=== PATIENT | male | born 1965 | race African-American/Black ===

== ENCOUNTER 2019-09-04 09:13 | Day surgery (SDC) | payer OTHER ==
[2019-09-04] VITALS (11 sets, daily range): BP systolic 120–141; BP diastolic 81–94; PULSE 53–68; TEMP 98
[~2019-09-04] VITALS: Ht 172.7 cm; Wt 115.3 kg
[~2019-09-04 09:13] MED LIST: ASPIRIN E.C. 8181 MG PO; CALCIUM600 M2 PO; DESYREL 50MG50 MG PO; HCTZ 25MG TAB25 MG PO; K-TAB20 PO; MASON NATURAL2000 IU PO; MULTIPLE VITAMI1 CAP PO; OMEGA-3 FISH1200 MG PO; PRILOSEC 20MG20 MG PO; THE MEDICINE S200 M2 PO; ZESTRIL 20MG TA20 MG PO; ZOLOFT 50MG50 MG PO
[2019-09-04] MEDS ORDERED: LIPITOR 40MG TA40 MG PO (09:43)
[2019-09-04] MEDS ORDERED: NORVASC 5MG5 MG/TAB PO (09:43)
[2019-09-04] MEDS ORDERED: FLEXERIL 1010 MG/TAB PO (09:45)
[2019-09-04] MEDS ORDERED: IMURAN 50MG TAB50 MG PO (09:47)
[2019-09-04] MEDS ORDERED: MELATONIN3 M1 PO (09:50)
[2019-09-04] MEDS ORDERED: NITROSTAT0.4 MG/TAB SL (09:51)
[2019-09-04] MEDS ORDERED: NITRO-DUR0.2 MG/PAT TD (09:51)
[2019-09-04] MEDS ORDERED: OMEGA-3 1000 MG1 CAP PO (09:52)
[2019-09-04] MEDS ORDERED: MINIPRESS2 MG PO (09:56)
[2019-09-04] MEDS ORDERED: AMBIEN 5MG TABLE5 MG PO (09:59)
[2019-09-04 10:47] LABS: HEMATOCRIT 42.5 % (42.0-52.0); HEMOGLOBIN 14.6 g/dl (13.5-18.0); MEAN CELL VOLUME 89 fl (80.0-100.0); MEAN CORPUSCULAR HEMOGLOBIN 31 pg (27.0-31.0); MEAN CORPUSCULAR HGB CONC 34 g/dl (33.0-37.0); MEAN PLATELET VOLUME 10.1 fl (7.4-10.4); PLATELET COUNT 234 K/mm3 (130-400); RED BLOOD COUNT 4.79 M/mm3 (4.20-5.60); REDCELL DISTRIBUTION WIDTH-CV 13.8 % (11.5-14.5)
[2019-09-04 10:49] LABS: CALCIUM 9.4 mg/dL (8.4-10.2); CREATININE, serum 1.26 (0.66-1.25); INR 1.2 (0.8-3.0); POTASSIUM 3.6 mmol/L (3.4-5.0); PROTHROMBIN TIME 13.1 SECONDS (9.7-12.8)
[2019-09-04 10:52] LABS: PARTIAL THROMBOPLASTIN TIME 40.6 SECONDS (26.0-37.0)
--- NOTE | 2019-09-04 11:49 | NUR ---
SEE MERGE DOCUMENTATION FOR MEDICATION ADMINISTRATION AND INTRA/POST PROCEDURE SEDATION ASSESSMENTS.
--- NOTE | 2019-09-04 17:00 | NUR ---
PT READY FOR DEPARTURE. PT HAS RECOVERED WELL FROM HEART CATH, RT RADIAL SITE DRESSED WITH BANDAID, WITH A GENTLE COMPRESSION DRESSING OF 2X2 AND COBAN. pT HAS HAD NO BLEEDING OR HEMATOMA BAND WAS DEFLATED BEGINNING AT 1447 OVER ABOUT AN HOUR. PT IS STEADY ON HIS FEET. WE HAVE REVIEWED DC/FU INSTRUCTIONS AND PT DENIES ANY QUESTIONS. IV IS DC'D WITH CATH INTACT. DRESSING APPLIED. PT ESCORTED TO EXIT VIA WHEELCHAIR.
== END 2019-09-04 17:00 | disposition home or self-care (01) ==
LOC: COL.CAR 09:13
PROVIDERS: Internal Medicine Cardiovascular Disease
DX: R06.00 Dyspnea, unspecified (principal); R94.39 Abnormal result of other cardiovascular function study; D86.0 Sarcoidosis of lung; I12.9 Hypertensive chronic kidney disease with stage 1 through stage 4 chronic kidney disease, or unspecified chronic kidney disease; I25.10 Atherosclerotic heart disease of native coronary artery without angina pectoris; N18.2 Chronic kidney disease, stage 2 (mild); F43.10 Post-traumatic stress disorder, unspecified; G47.00 Insomnia, unspecified; G47.33 Obstructive sleep apnea (adult) (pediatric); N52.9 Male erectile dysfunction, unspecified; E66.09 Other obesity due to excess calories; Z68.38 Body mass index [BMI] 38.0-38.9, adult; Z79.899 Other long term (current) drug therapy; Z87.891 Personal history of nicotine dependence; Z82.5 Family history of asthma and other chronic lower respiratory diseases; Z82.49 Family history of ischemic heart disease and other diseases of the circulatory system; Z88.5 Allergy status to narcotic agent
CPT/HCPCS: C1894; J1644; J2250; J3010; Q9967

== ENCOUNTER 2021-12-29 10:18 | Inpatient (IN) | payer OTHER ==
[~2021-12-29] VITALS: Ht 170.2 cm; Wt 112.4 kg
[2021-12-29] VITALS (7 sets, daily range): BP systolic 83–153; BP diastolic 48–92; PULSE 78–84; TEMP 98.5–98.9
--- NOTE | 2021-12-29 10:15 | NUR ---
Patient to room 322 from [facility]. Nurse oriented the patient to location, room and call light. Patient A&Ox4. VSS. IV CDI. NG tube intact. Call light within reach
[~2021-12-29 10:18] MED LIST changes: +AMBIEN 5MG TABLE5 MG PO; +FLEXERIL 1010 MG/TAB PO; +IMURAN 50MG TAB50 MG PO; +LIPITOR 40MG TA40 MG PO; +MELATONIN3 M1 PO; +MINIPRESS2 MG PO; -MULTIPLE VITAMI1 CAP PO; +MULTIPLE VITAMI1 TA5 PO; +NITRO-DUR0.2 MG/PAT TD; +NITROSTAT0.4 MG/TAB SL; +NORVASC 5MG5 MG/TAB PO; +OMEGA-3 1000 MG1 CAP PO
--- NOTE | 2021-12-29 17:29 | NUR ---
Patient resting in bed, daughter at the bedside. A&Ox4. VSS. IV CDI, fluids infusing. Denies pain and discomfort. NG tube LIS brown moderate output. Patient NPO for procedure and while NG tube to LIS. No further needs expressed. Call light within reach
--- NOTE | 2021-12-29 19:05 | NUR ---
TO SURGERY PER BED.
--- NOTE | 2021-12-29 23:14 | NUR ---
RETURNS FROM OR PER BED. ON OXYGEN AT 2L/NC. NGT TO RT NARE, CONNECTED TO LIS, DRAINAGE LIGHT BROWN. ABD WITH MIDLINE INCISION DRAINAGE CIRCLED. HAS RLQ INCISION COVERED WITH GAUZE. HAN TO BSD, URINE YELLOW. IS ALERT AND ORIENTED X4. IVF TO RAC INFUSING WITHOUT PROBLEM. EPIDURAL CATHETER INFUSING AT 6ML/HR. PT REPORTS PAIN 2/10.
[2021-12-30] VITALS (11 sets, daily range): BP systolic 101–143; BP diastolic 57–79; PULSE 82–92; TEMP 98–100
--- NOTE | 2021-12-30 05:36 | NUR ---
PT RESTING WELL WITH EPIDURAL INFUSING. HAS HAD 200CC FROM NGT AND 400CC YELLOW URINE FROM HAN. HAS BEEN NPO, SCDS ON. IVF INFUSING WITHOUT PROBLEM.
[2021-12-30 06:50] LABS: BASO % 0.1 % (0.0-2.0); GRAN # 15.6 K/mm3 (1.4-6.5); GRAN % 86.4 % (42.2-75.2); HEMATOCRIT 38.4 % (42.0-52.0); HEMOGLOBIN 13.5 g/dl (13.5-18.0); LYMPH # 0.9 K/mm3 (1.2-3.4); LYMPH % 4.8 % (20.0-51.0); MEAN CELL VOLUME 88 fl (80.0-100.0); MEAN CORPUSCULAR HEMOGLOBIN 31 pg (27-31); MEAN CORPUSCULAR HGB CONC 35 g/dl (33.0-37.0); MEAN PLATELET VOLUME 10.5 fl (7.4-10.4); MONO # 1.5 K/mm3 (0.1-0.6); MONO % 8.3 % (1.7-9.3); PLATELET COUNT 258 K/mm3 (130-400); RED BLOOD COUNT 4.35 M/mm3 (4.20-5.60); REDCELL DISTRIBUTION WIDTH-CV 13.4 % (11.5-14.5)
[2021-12-30 07:10] LABS: CALCIUM 8.6 mg/dL (8.4-10.2); CREATININE, serum 1.59 mg/dL (0.72-1.25); POTASSIUM 3.6 mmol/L (3.5-4.5)
--- NOTE | 2021-12-30 08:28 | NUR ---
PT RESTING IN BED. DRESSINGS TO ABD CDI. HAN TO DD WITH YELLOW URINE IN BAG. EPIDURAL RUNNING @6ML/HR. IV TO RFA. PT DENIES NEEDS OR PAIN A THIS TIME.
--- NOTE | 2021-12-30 13:00 | NUR ---
Dividend Clerk visited briefly with patient. Nothing else needed at this time.
[2021-12-30 13:56] LABS: MUCOUS Present (NOT PRESENT); SQUAMOUS EPITHELIAL None Seen /hpf (0-10); URINE BACTERIA None Seen /hpf (NONE SEEN); URINE RBC 20-50 /hpf (0-2)
[2021-12-30 14:09] LABS: PH 5.5 (5.0-8.5); URINE APPEARANCE Clear (CLEAR/HAZY); URINE COLOR Yellow (YELLOW)
[2021-12-30 14:10] LABS: URINE BLOOD 2+ (NEGATIVE); URINE GLUCOSE Negative (NEGATIVE); URINE KETONE Negative (NEGATIVE); URINE NITRATE Negative (NEGATIVE); URINE PROTEIN(semi-quant) 1+ (NEGATIVE); URINE UROBILINOGEN 0.2 E.U/dL (0.2-1.0)
[2021-12-30 14:16] LABS: COLLECTION METHOD CLEAN CATCH
--- NOTE | 2021-12-30 21:30 | NUR ---
ASSISTED PT TO EDGE OF BED AND STANDING AT BEDSIDE. EPIDURAL CATH DRSG D/I. PT REPORTS GOOD RELIEF OF PAIN WITH EPIDURAL. PT HAS HAN TO BSD WITH YELLOW URINE. HAS NGT TO RT NARE TO LIS, BROWN DRAINAGE IN CANNISTER. PT DENIES NAUSEA WITH NGT CLAMPED. ABD DISTENDED, HYPOACTIVE BS, MIDLINE DRSG AND RT ABD DRSG D/I. IS ALERT AND ORIENTED X4. IS NPO, USING MOUTH SWABS FOR ORAL CARES. IVF TO RAC, NO REDNESS OR SWELLING NOTED.
--- NOTE | 2021-12-30 21:50 | NUR ---
PT BACK IN BED, NGT BACK TO SUCTION. PT TOLERATED ACTIVITY WITHOUT PROBLEM. BILATERAL SCDS ON.
[2021-12-31 03:53] VITALS: BP 122/76; PULSE 89; TEMP 98.9
--- NOTE | 2021-12-31 05:20 | NUR ---
PT HAS 150CC DARK GREEN DRAINAGE IN NG CANNISTER.
[2021-12-31 07:12] LABS: BASO # 0.1 K/mm3 (0.0-0.2); BASO % 0.4 % (0.0-2.0); EOS # 0.2 K/mm3 (0.0-0.7); EOS % 1.8 % (0.0-4.0); GRAN # 9.7 K/mm3 (1.4-6.5); GRAN % 75.6 % (42.2-75.2); HEMOGLOBIN 13.4 g/dl (13.5-18.0); LYMPH # 1.4 K/mm3 (1.2-3.4); LYMPH % 10.9 % (20.0-51.0); MEAN CELL VOLUME 88 fl (80.0-100.0); MEAN CORPUSCULAR HEMOGLOBIN 30 pg (27-31); MEAN CORPUSCULAR HGB CONC 34 g/dl (33.0-37.0); MEAN PLATELET VOLUME 10.3 fl (7.4-10.4); MONO # 1.4 K/mm3 (0.1-0.6); MONO % 10.9 % (1.7-9.3); PLATELET COUNT 239 K/mm3 (130-400); RED BLOOD COUNT 4.44 M/mm3 (4.20-5.60); REDCELL DISTRIBUTION WIDTH-CV 13.4 % (11.5-14.5)
[2021-12-31 07:17] LABS: CALCIUM 8.6 mg/dL (8.4-10.2); CREATININE, serum 1.37 mg/dL (0.72-1.25); POTASSIUM 3.3 mmol/L (3.5-4.5)
[2021-12-31 07:31] VITALS: BP 141/80; PULSE 85; TEMP 99.3
--- NOTE | 2021-12-31 08:56 | NUR ---
PT SITTING UP IN BED, COMPLETE ORAL CARE INDEPENDENT. NEW ORDERS RECIEVED AND CARRIED OUT. DRESSINGS TO ABDOMEN CDI. IV TO RH. EPIDURAL CONTROLLING PAIN WELL. NG TO LIS WITH MIN DISCHARGE CLEARING. HAN TO DD WITH CLEAR YELLLOW URINE.
[2021-12-31 12:04] VITALS: BP 136/81; PULSE 88; TEMP 98.7
--- NOTE | 2021-12-31 12:27 | NUR ---
Mine Technician met with patient, who likes to be called "Zander" for intake assessment/discharge planning: Patient states he lives independently in his home in [place], and reports ability to complete his ADLs/IADLs. He utilizes a C-PAP machine, but no other DME. He reports he has adult children who lives nearby and are supportive. He obtains primary care at [facility] and utilizes the pharmacy there. He states no difficulties in obtaining his medications. He does state his spouse in August this year, suddenly from a heart attack despite some minor medical concerns. He states he has spiritual support through "pastors" and sees a therapist and psychiatrist at the [facility] for PTSD and grief. Patient reports no anticipated needs at discharge and plans to return to home. Patient states he is not interested in completing a DPOA-HC at this time. *Discharge plan: To home*
[2021-12-31 15:58] VITALS: BP 131/88; PULSE 88; TEMP 98.7
[2021-12-31 19:03] VITALS: BP 134/81; PULSE 85; TEMP 98.9
--- NOTE | 2021-12-31 20:24 | NUR ---
REPORT FROM TIFFANY BROWNE. PATIENT IN BED ON ROOM ENTRY. ALERT AND ORIENTED. HS MEDS PER EMAR. C/O MILD PAIN BUT DENIES PAIN CONTROL NEEDS. ABD MIDLINE CDI, SMALL ABD LAP SITE CDI WITH GAUZE. HAN TO DD WITH CLEAR YELLOW OUTPUT. NG TO LIS WITH GREEN OUTPUT. EPIDURAL SITE CDI WITH TEGADERM. IVF INFUSING WITHOUT ISSUE. DENIES ADDITIONAL NEEDS. CALL LIGHT IN REACH.
[2021-12-31 23:29] VITALS: BP 142/81; PULSE 83; TEMP 98.6
[2022-01-01 04:08] VITALS: BP 141/81; PULSE 85; TEMP 98.4
[2022-01-01 06:50] LABS: BASO % 0.3 % (0.0-2.0); EOS # 0.3 K/mm3 (0.0-0.7); EOS % 2.5 % (0.0-4.0); GRAN % 78.3 % (42.2-75.2); HEMATOCRIT 38.4 % (42.0-52.0); HEMOGLOBIN 13.4 g/dl (13.5-18.0); LYMPH # 1.1 K/mm3 (1.2-3.4); LYMPH % 9.4 % (20.0-51.0); MEAN CELL VOLUME 88 fl (80.0-100.0); MEAN CORPUSCULAR HEMOGLOBIN 31 pg (27-31); MEAN CORPUSCULAR HGB CONC 35 g/dl (33.0-37.0); MEAN PLATELET VOLUME 10.3 fl (7.4-10.4); MONO # 1.1 K/mm3 (0.1-0.6); MONO % 9.2 % (1.7-9.3); PLATELET COUNT 232 K/mm3 (130-400); RED BLOOD COUNT 4.37 M/mm3 (4.20-5.60); REDCELL DISTRIBUTION WIDTH-CV 13.1 % (11.5-14.5)
[2022-01-01 07:00] LABS: CALCIUM 8.6 mg/dL (8.4-10.2); CREATININE, serum 1.19 mg/dL (0.72-1.25); POTASSIUM 3.9 mmol/L (3.5-4.5)
[2022-01-01 07:22] VITALS: BP 138/81; PULSE 80; TEMP 99.3
--- NOTE | 2022-01-01 07:47 | NUR ---
Patient resting in bed. Offered to get him out of bed, he was not yet ready. Epidural @6 managing pain, using BUS OPERATOR as needed. Epidrual site dressing intact. Abdomen rounded,midline with Abd intact. Right side Adbomen gauze intact. Bowels quiet. Ng tube to LIS, with green output.NPo, few sips & chips. Patient denies yet passing flatus. Scds ble. Hospital socks placed on patient. activity encouraged today. Will monitor.
--- NOTE | 2022-01-01 09:28 | NUR ---
Patient ready to get up to the chair. One assist. Pain elevated with movement. Epidural buttoned used. Patient assisted with hygiene. Kellogg cares given. Bed bath wipes used, shower cap used. New linens. [place] provided for oral cares. Patient reports he is not sure if he will be able to tell if he has passed flatus. Will monitor.
--- NOTE | 2022-01-01 11:25 | NUR ---
rounded. PLan of care reviewed. Ng tube clamped per orders & clear liquids provided. Patient taking it very slow. Patient main complaint at this time is of throat pain & which is causing a headache per report radiating to his ear. He did not want anything for headache, just wanting to start with the chloroseptic spray & see how it goes. Patient assisted back to bed, warm blanket provided for comfort. Will let him rest. Did discuss with him ambulation in the halls this afternoon when he feel up to it.
[2022-01-01 12:03] VITALS: BP 134/82; PULSE 85; TEMP 99
--- NOTE | 2022-01-01 12:55 | NUR ---
Patient headache remains. called & made aware, orders for PRN tylenol and or Mortin obtained. Patient continue to tolerate Ng tube being clamped. Will monitor.
--- NOTE | 2022-01-01 14:38 | NUR ---
Headache resolved with tylenol. NG remains clamped & patient tolerating.
[2022-01-01 15:55] VITALS: BP 131/79; PULSE 85; TEMP 98.8
--- NOTE | 2022-01-01 17:54 | NUR ---
Patient continues to deny nausea. NG tube DC. He tolerated well. Anesthesia in to replace epidural canistier. Patient up and we ambulated in room, patient did not want to walk in halls, he was concerned he may have a BM. He did not want to in in hallways if that happened.
[2022-01-01 19:20] VITALS: BP 140/82; PULSE 85; TEMP 98.4
--- NOTE | 2022-01-01 19:26 | NUR ---
Bedside report to nightnurse
--- NOTE | 2022-01-01 20:34 | NUR ---
SHIFT REPORT FROM ELIZABETH BROWNE. PATIENT IN CHAIR ON ROOM ENTRY. FAMILY AT BEDSIDE. ALERT AND ORIENTED. HS MEDS PER EMAR. ABD MIDLINE CDI, R ABD INCISION CDI. DENIES NAUSEA, DENIES PASSING GAS. HAN TO DD WITH ESTEFANI OUTPUT. EPIDURAL REMAINS AT 6 AND DRESSING IS CDI. PATIENT DENIES PAIN. TOLERATING CLEARS. DENIES ADDITIONAL NEEDS. CALL LIGHT IN REACH.
[2022-01-01 23:16] VITALS: BP 140/80; PULSE 86; TEMP 98.9
[2022-01-02 03:10] VITALS: BP 136/79; PULSE 82; TEMP 98.7
[2022-01-02 06:28] LABS: BASO % 0.4 % (0.0-2.0); EOS # 0.3 K/mm3 (0.0-0.7); GRAN # 6.7 K/mm3 (1.4-6.5); GRAN % 71.2 % (42.2-75.2); HEMATOCRIT 38.7 % (42.0-52.0); HEMOGLOBIN 13.6 g/dl (13.5-18.0); LYMPH # 1.3 K/mm3 (1.2-3.4); LYMPH % 13.8 % (20.0-51.0); MEAN CELL VOLUME 87 fl (80.0-100.0); MEAN CORPUSCULAR HEMOGLOBIN 31 pg (27-31); MEAN CORPUSCULAR HGB CONC 35 g/dl (33.0-37.0); MEAN PLATELET VOLUME 10.8 fl (7.4-10.4); MONO # 1.1 K/mm3 (0.1-0.6); MONO % 11.3 % (1.7-9.3); PLATELET COUNT 251 K/mm3 (130-400); RED BLOOD COUNT 4.46 M/mm3 (4.20-5.60); REDCELL DISTRIBUTION WIDTH-CV 12.8 % (11.5-14.5)
[2022-01-02 06:43] LABS: CALCIUM 8.7 mg/dL (8.4-10.2); CREATININE, serum 1.08 mg/dL (0.72-1.25); POTASSIUM 3.3 mmol/L (3.5-4.5)
[2022-01-02 07:15] VITALS: BP 132/78; PULSE 80; TEMP 98.1
--- NOTE | 2022-01-02 08:15 | NUR ---
Pt up at sink to brush teeth. Checked olson catheter; clear lyric urine. Pt requested to ambulate to try and get "things moving." Walked around nursing floor loop x2; tolerated well. Post ambulation, pt to chair with clear liquid breakfast. Consumed 50% of breakfast; tolerated well. Rates pain 2/10; describes pain as pressure.
--- NOTE | 2022-01-02 09:34 | NUR ---
PATIENT ALERT AND ORIENTED X4. VSS. PATIENT HERE FOR SBO. PATIENT C/O PAIN 2/10 IN ABDOMEN, PRESSURE IN ABDOMEN. PATIENT REPORTS NO GAS, HOWEVER, IS BELCHING FREQUENTLY. PATIENT ENCOURAGED TO AMBULATE FREQUENTLY IN HALLS. PATIENT ON RA. HAN TO DD WITH ESTEFANI OUTPUT. PATIENT ON CLEARS, TOLERATING WELL. PATIENT RESTING IN BED WITH CALL LIGHT NEAR.
[2022-01-02 10:59] VITALS: BP 127/76; PULSE 90; TEMP 98.8
--- NOTE | 2022-01-02 11:12 | NUR ---
PATIENT REPORTS LARGE, LOOSE BM. ABDOMINAL DISTENTION RELIEVED SLIGHTLY. PATIENT REPORTS PAIN HAS DECREASED DUE TO BM. PATIENT RESTING IN BED WITH CALL LIGHT NEAR.
[2022-01-02 16:18] VITALS: BP 123/76; PULSE 95; TEMP 99.1
[2022-01-02 19:25] VITALS: BP 125/71; PULSE 112; TEMP 97.4
[2022-01-02 23:01] VITALS: BP 118/72; PULSE 117; TEMP 98.2
--- NOTE | 2022-01-03 00:19 | NUR ---
SHIFT REPORT FROM LOLLY BROWNE. PATIENT IN CHAIR ON ROOM ENTRY. ALERT AND ORIENTED. HS MEDS PER EMAR. CALL RECIEVED FROM TELE AND PATIENT TACHY IN 130S, UPON ASSESSMENT PATIENT STATES HE FEELS NOT TAKING HIS HOME MEDICATIONS HAS CAUGHT UP TO HIM AND HIS PTSD IS OVERWHELMING HIM. CALL PLACED TO SERAFIN MARQUEZ, AND ORDER FOR EKG AND NOW DOSE OF ATIVAN. ATIVAN GIVEN. EKG COMPLETED. ATTEMPTED TO CONTACT SERAFIN WITH RESULTS AND NO ANSWER.
--- NOTE | 2022-01-03 03:30 | NUR ---
PATIENT CALLED OUT AROUND 0100 C/O VOMITING, PATIENT HAD LARGE YELLOW EMESIS AND C/O DIARRHEA. NOTIFIED SERAFIN DIRECTOR VISUAL AND ORDER FOR LABS AND CT ABD. CT ABD COMPLETED AND RESULTED IN BOWEL OBSTRUCTION. STARTED 14 F NG TUBE TO LIS PER SERAFIN ORDER. PATIENT TOLERATED PROCEDURE WELL. YELLOW STOMACH CONTENTS OUT OF NG TUBE. IV TO R AC INFILTRATED AND RESTARTED TO LFA. DENIES ADDITIONAL NEEDS AT THIS TIME.
[2022-01-03 03:47] VITALS: BP 120/73; PULSE 90; TEMP 98.2
[2022-01-03 06:40] LABS: BASO % 0.5 % (0.0-2.0); EOS # 0.3 K/mm3 (0.0-0.7); EOS % 3.8 % (0.0-4.0); GRAN # 6.1 K/mm3 (1.4-6.5); GRAN % 69.3 % (42.2-75.2); HEMATOCRIT 37.1 % (42.0-52.0); HEMOGLOBIN 12.9 g/dl (13.5-18.0); LYMPH # 1.1 K/mm3 (1.2-3.4); LYMPH % 12.7 % (20.0-51.0); MEAN CELL VOLUME 87 fl (80.0-100.0); MEAN CORPUSCULAR HEMOGLOBIN 30 pg (27-31); MEAN CORPUSCULAR HGB CONC 35 g/dl (33.0-37.0); MEAN PLATELET VOLUME 10.2 fl (7.4-10.4); MONO # 1.2 K/mm3 (0.1-0.6); MONO % 13.5 % (1.7-9.3); PLATELET COUNT 289 K/mm3 (130-400); RED BLOOD COUNT 4.29 M/mm3 (4.20-5.60)
[2022-01-03 06:52] LABS: CALCIUM 8.6 mg/dL (8.4-10.2); CREATININE, serum 1.24 mg/dL (0.72-1.25); POTASSIUM 3.5 mmol/L (3.5-4.5)
[2022-01-03 08:30] VITALS: BP 123/78; PULSE 92; TEMP 98.7
--- NOTE | 2022-01-03 10:00 | NUR ---
PICC line being placed at this time
[2022-01-03 10:01] LABS: ALBUMIN 3.2 gm/dL (3.5-5.0); BILIRUBIN,TOTAL 1.3 mg/dL (0.2-1.2); PHOSPHOROUS 3.5 mg/dL (2.3-4.7); TOTAL PROTEIN 6.3 gm/dL (6.2-8.1)
[2022-01-03 11:20] VITALS: BP 127/68; PULSE 83; TEMP 98.9
--- NOTE | 2022-01-03 11:31 | NUR ---
Epidural removed via anesthesia. Picc line also placed. Pt not having complaints of pain, but states that his throat is burning from NG tube. Went over plan of care for today as far as tube removal and nutritional via PICC line. Pt is very down right now as far as the set back from last night. No needs verbalized, will continue to monitor
[2022-01-03 15:45] VITALS: BP 124/74; PULSE 86; TEMP 98.7
--- NOTE | 2022-01-03 19:26 | NUR ---
Kellogg catheter has been removed, gave pt urinal to void in to. Pt has had no complaints of nausea or pain since epidural has been removed. Pt has been getting up to the side of the bed and standing. He has also sat on commode off and on throughout the day. SCDs put back on at this time, no other needs, call light within reach
[2022-01-03 20:43] VITALS: BP 133/76; PULSE 90; TEMP 98.9
--- NOTE | 2022-01-03 21:37 | NUR ---
PT A&OX4 RESTING IN BED. PT RATES PN IN ABD A 06/25. INCISIONS CDI. NG TO TOMASZ JORDAN OUTPUT. SCDS TO BLE. TPS INFUSING IN IVONE PICC. NO NEEDS AT THIS TIME. CALL LIGHT WITHIN REACH.
[2022-01-04 00:15] VITALS: BP 132/81; PULSE 88; TEMP 99.1
--- NOTE | 2022-01-04 01:49 | NUR ---
pt called stating that he got up to go the the restroom and his ng tube fell out. called bianka morgan and instructed to see how pt does without. pt denies nv, has had a bm. approx 50cc of output in canister.
[2022-01-04 04:46] VITALS: BP 127/76; PULSE 82; TEMP 98.3
[2022-01-04 07:02] VITALS: BP 118/92; PULSE 80; TEMP 98.9
[2022-01-04 07:10] LABS: BASO % 0.3 % (0.0-2.0); EOS # 0.3 K/mm3 (0.0-0.7); EOS % 3.4 % (0.0-4.0); GRAN # 6.5 K/mm3 (1.4-6.5); GRAN % 69.6 % (42.2-75.2); HEMOGLOBIN 12.5 g/dl (13.5-18.0); LYMPH # 1.4 K/mm3 (1.2-3.4); LYMPH % 14.9 % (20.0-51.0); MEAN CELL VOLUME 89 fl (80.0-100.0); MEAN CORPUSCULAR HEMOGLOBIN 31 pg (27-31); MEAN CORPUSCULAR HGB CONC 35 g/dl (33.0-37.0); MONO # 1.1 K/mm3 (0.1-0.6); MONO % 11.3 % (1.7-9.3); PLATELET COUNT 251 K/mm3 (130-400); RED BLOOD COUNT 4.09 M/mm3 (4.20-5.60); REDCELL DISTRIBUTION WIDTH-CV 12.9 % (11.5-14.5)
[2022-01-04 07:17] LABS: HEMATOCRIT 36.2 % (42.0-52.0)
[2022-01-04 07:33] LABS: CALCIUM 8.6 mg/dL (8.4-10.2); CREATININE, serum 1.18 mg/dL (0.72-1.25); MAGNESIUM 2.1 mg/dL (1.6-2.6); PHOSPHOROUS 2.6 mg/dL (2.3-4.7); POTASSIUM 3.6 mmol/L (3.5-4.5)
--- NOTE | 2022-01-04 08:12 | NUR ---
Pt doing okay this morning. Removed surgical dressing. Incisions are well approximated with mohsen intact. Pt does not have any complaints of significant pain. Voiding without difficulty. Pt has no complaints of feeling nauseated. He reported having a bowel movement last night, stated that it did have some consistency to it. Pt feels as if he needs to have another bowel movement. Bowel sounds are still hypoactive. No other needs, will continue to monitor
--- NOTE | 2022-01-04 11:30 | NUR ---
Pt tolerated clear liquid diet. Pt abd is more tight now and he does state that he does notice a difference. Encouraged him to take the fluids slow and encouraged more ambulation.
[2022-01-04 12:00] VITALS: BP 138/80; PULSE 82; TEMP 98.6
--- NOTE | 2022-01-04 15:00 | NUR ---
PT continues to get up and move around in his room. He has been having small amount of stool. Soft and formed. Pt has not had much more of clear liquids, just sipping on gatorade. Pt continues to be very quiet, does not voice any needs
[2022-01-04 15:29] VITALS: BP 132/75; PULSE 75; TEMP 98.5
--- NOTE | 2022-01-04 17:00 | NUR ---
Pt having complaints that his stomach is cramping. Reports he is not sure if it is gas pains or something else. It is obvious by his behavior that he is having pain. PRN pain medication given. Pt has continued to not have any more liquids this afternoon. Pt does continue to walk around in his room
[2022-01-04 20:09] VITALS: BP 154/82; PULSE 84; TEMP 98.1
--- NOTE | 2022-01-04 20:25 | NUR ---
PT A&OX4 RESTING IN BED. RATES PN A /10. ABD INCISIONS ARE CDI. DENIES NV. VSS AND TELE IS IN PLACE. TPN INFUSING IN IVONE PICC. NO NEEDS AT THIS TIME. CALL LIGHT WITHIN REACH.
[2022-01-05] VITALS (7 sets, daily range): BP systolic 131–154; BP diastolic 75–90; PULSE 73–91; TEMP 98.2–98.4
[2022-01-05 06:53] LABS: HEMOGLOBIN 12.9 g/dl (13.5-18.0); MEAN CELL VOLUME 87 fl (80.0-100.0); MEAN CORPUSCULAR HEMOGLOBIN 31 pg (27-31); MEAN CORPUSCULAR HGB CONC 35 g/dl (33.0-37.0); MEAN PLATELET VOLUME 10.9 fl (7.4-10.4); PLATELET COUNT 206 K/mm3 (130-400); RED BLOOD COUNT 4.22 M/mm3 (4.20-5.60); REDCELL DISTRIBUTION WIDTH-CV 12.8 % (11.5-14.5)
[2022-01-05 06:54] LABS: HEMATOCRIT 36.7 % (42.0-52.0)
[2022-01-05 07:11] LABS: CALCIUM 8.9 mg/dL (8.4-10.2); CREATININE, serum 1.22 mg/dL (0.72-1.25); MAGNESIUM 2.2 mg/dL (1.6-2.6); PHOSPHOROUS 3.2 mg/dL (2.3-4.7); POTASSIUM 3.8 mmol/L (3.5-4.5)
[2022-01-05 07:59] LABS: BAND 8 % (0-10); BASOPHIL 1 % (0-2); EOSINOPHIL 2 % (0-4); LYMPHOCYTE 21 % (20.0-51.0); NEUTROPHILS 57 % (42.0-75.2); PLATELET ESTIMATE NORMAL (NORMAL)
--- NOTE | 2022-01-05 12:45 | NUR ---
PATIENT ALERT AND ORIENTED X4. VSS. PATIENT HERE FOR SBO/LYSIS OF ADHESIONS. PATIENT DENIES PAIN. PATIENT ON TPN RUNNING AT 63/HOUR IN RIGHT UPPER ARM PICC. PATIENT REPORTS SEVERAL BOUTS OF DIARRHEA THIS SHIFT. PATIENT REQUESTS ADVANCEMENT OF DIET. PATIENT ENCOURAGED TO AMBULATE THIS SHIFT. PATIENT RESTING IN BED WITH CALL LIGHT NEAR.
--- NOTE | 2022-01-05 20:54 | NUR ---
PT A&OX4 RESTING IN BED. MEDS GIVEN AND ASSESSMENT COMPLETE. PT DENIES PN AND N/V. ABDOMINAL INCISIONS CDI. VSS AND TELE IN PLACE. TPN INFUSING IN IVONE PICC. NO NEEDS AT THIS TIME. CALL LIGHT WITHIN REACH.
[2022-01-06 04:45] VITALS: BP 134/73; PULSE 78; TEMP 98
[2022-01-06 07:23] LABS: BASO # 0.1 K/mm3 (0.0-0.2); BASO % 0.7 % (0.0-2.0); EOS # 0.4 K/mm3 (0.0-0.7); EOS % 3.7 % (0.0-4.0); GRAN # 6.5 K/mm3 (1.4-6.5); GRAN % 65.6 % (42.2-75.2); HEMOGLOBIN 12.9 g/dl (13.5-18.0); LYMPH # 1.9 K/mm3 (1.2-3.4); MEAN CELL VOLUME 87 fl (80.0-100.0); MEAN CORPUSCULAR HEMOGLOBIN 30 pg (27-31); MEAN CORPUSCULAR HGB CONC 35 g/dl (33.0-37.0); MEAN PLATELET VOLUME 10.3 fl (7.4-10.4); MONO % 10.1 % (1.7-9.3); PLATELET COUNT 283 K/mm3 (130-400); RED BLOOD COUNT 4.24 M/mm3 (4.20-5.60); REDCELL DISTRIBUTION WIDTH-CV 12.6 % (11.5-14.5)
[2022-01-06 07:30] LABS: HEMATOCRIT 36.7 % (42.0-52.0)
[2022-01-06 07:53] LABS: CALCIUM 8.7 mg/dL (8.4-10.2); CREATININE, serum 1.33 mg/dL (0.72-1.25); MAGNESIUM 2.1 mg/dL (1.6-2.6); PHOSPHOROUS 3.7 mg/dL (2.3-4.7); POTASSIUM 3.5 mmol/L (3.5-4.5)
[2022-01-06 08:41] VITALS: BP 135/71; PULSE 70; TEMP 98.3
[2022-01-06 12:23] VITALS: BP 135/71; PULSE 70; TEMP 98.3
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
--- NOTE | 2022-01-06 14:25 | NUR ---
PATIENT ALERT AND ORIENTED X4. VSS. PATIENT HERE FOR SBO/LYSIS OF ADHESIONS. PATIENT DENIES PAIN. PICC TO RIGHT UPPER ARM WITH TPN RUNNING AT 63ML/HOUR. FLORINA INTACT ON MIDLINE AND RIGHT ROBOTIC SITE. BOWEL SOUNDS HYPOACTIVE THIS AM, BUT PATIENT REPORTS ONE BM THIS AM. PATIENT RESTING IN BED WITH CALL LIGHT NEAR.
[2022-01-06 16:00] VITALS: BP 146/90; PULSE 106; TEMP 97.4
--- NOTE | 2022-01-06 20:04 | NUR ---
PT A&OX4 RESTING IN BED. MEDS GIVEN AND ASSESSMENT COMPLETE. PT REPORTS CRAMPING IN RT SIDE OF ABDOMEN AFTER DRINKING WATER. VSS AND TELE IN PLACE. ABDOMINAL INCISIONS CDI. TPN INFUSING IN IVONE PICC. NO NEEDS AT THIS TIME. CALL LIGHT WITHIN REACH.
[2022-01-06 20:52] VITALS: BP 137/73; PULSE 96; TEMP 98.8
[2022-01-06 23:53] VITALS: BP 140/77; PULSE 64; TEMP 67.9; TEMP 97.9
[2022-01-07 03:27] VITALS: BP 138/76; PULSE 85; TEMP 97.9
[2022-01-07 08:27] VITALS: BP 107/66; PULSE 88; TEMP 99
[2022-01-07 08:35] LABS: BASO # 0.1 K/mm3 (0.0-0.2); BASO % 0.6 % (0.0-2.0); EOS # 0.3 K/mm3 (0.0-0.7); EOS % 2.7 % (0.0-4.0); GRAN # 7.8 K/mm3 (1.4-6.5); GRAN % 64.6 % (42.2-75.2); HEMATOCRIT 38.7 % (42.0-52.0); HEMOGLOBIN 13.6 g/dl (13.5-18.0); LYMPH # 2.6 K/mm3 (1.2-3.4); MEAN CELL VOLUME 87 fl (80.0-100.0); MEAN CORPUSCULAR HEMOGLOBIN 31 pg (27-31); MEAN CORPUSCULAR HGB CONC 35 g/dl (33.0-37.0); MEAN PLATELET VOLUME 10.7 fl (7.4-10.4); MONO # 1.2 K/mm3 (0.1-0.6); MONO % 10.2 % (1.7-9.3); PLATELET COUNT 278 K/mm3 (130-400); RED BLOOD COUNT 4.46 M/mm3 (4.20-5.60); REDCELL DISTRIBUTION WIDTH-CV 12.8 % (11.5-14.5)
[2022-01-07 08:39] LABS: CALCIUM 9.1 mg/dL (8.4-10.2); CREATININE, serum 1.51 mg/dL (0.72-1.25); MAGNESIUM 2.1 mg/dL (1.6-2.6); PHOSPHOROUS 4.4 mg/dL (2.3-4.7); POTASSIUM 3.6 mmol/L (3.5-4.5)
--- NOTE | 2022-01-07 11:11 | NUR ---
PATIENT ALERT AND ORIENTED X4. VSS. PATIENT HERE FOR SBO/LYSIS OF ADHESIONS. MIDLINE INCISION, WITH FLORINA, CDI. INCISION TO RIGHT ABDOMEN, FLORINA INTACT. PATIENT REPORTS PAIN 3/10, CRAMPING IN ABDOMEN AFTER MEAL. PATIENT AMBULATING HALLS, PASSING GAS, AND ONE BM THIS AM. K PAD TO ABDOMEN TO RELIEVE PAIN. PATIENT DENIES ANY N/V. PATIENT RESTING IN BED WITH CALL LIGHT NEAR.
[2022-01-07 12:00] VITALS: BP 138/86; PULSE 97; TEMP 98.8
--- NOTE | 2022-01-07 12:50 | NUR ---
Propeller Driven Airplane Mechanic rounds: Patient is not feeling well today. Propeller Driven Airplane Mechanic offered a prayer.
[2022-01-07 15:32] VITALS: BP 142/78; PULSE 91; TEMP 98.4
[2022-01-07 20:25] VITALS: BP 121/68; BP 123/79; PULSE 102; TEMP 98.8
[2022-01-07 23:54] VITALS: BP 119/69; PULSE 87; TEMP 98.5
--- NOTE | 2022-01-08 01:31 | NUR ---
SHIFT REPORT FROM LOLLY BROWNE. PATIENT IN BATHROOM ON ROOM ENTRY. INDEPENDENT IN ROOM AND HALLS. FAMILY UP TO SEE HIM SOME TONIGHT. HS MEDS PER EMAR. REQUESTS CRACKERS WITH PILLS. DENIES PAIN CONTROL NEEDS. STATES HE IS PASSING GAS AND HAVING LOOSE STOOLS.
[2022-01-08 03:48] VITALS: BP 125/70; PULSE 88; TEMP 97.6
[2022-01-08 07:04] VITALS: BP 127/80; PULSE 86; TEMP 98.7
--- NOTE | 2022-01-08 07:21 | NUR ---
VSS,PT A&O X4, PT ABLE TO MAKE NEEDS KNOWN, PT DENIES PAIN, CALL LIGHT IN REACH
[2022-01-08 07:24] LABS: CALCIUM 9.2 mg/dL (8.4-10.2); CREATININE, serum 1.78 mg/dL (0.72-1.25); PHOSPHOROUS 4.4 mg/dL (2.3-4.7); POTASSIUM 3.4 mmol/L (3.5-4.5)
[2022-01-08 07:26] LABS: BASO # 0.1 K/mm3 (0.0-0.2); BASO % 0.6 % (0.0-2.0); EOS # 0.3 K/mm3 (0.0-0.7); EOS % 2.2 % (0.0-4.0); GRAN # 10.3 K/mm3 (1.4-6.5); GRAN % 71.7 % (42.2-75.2); HEMATOCRIT 40.8 % (42.0-52.0); HEMOGLOBIN 13.8 g/dl (13.5-18.0); LYMPH # 2.3 K/mm3 (1.2-3.4); MEAN CELL VOLUME 89 fl (80.0-100.0); MEAN CORPUSCULAR HEMOGLOBIN 30 pg (27-31); MEAN CORPUSCULAR HGB CONC 34 g/dl (33.0-37.0); MONO # 1.2 K/mm3 (0.1-0.6); MONO % 8.6 % (1.7-9.3); RED BLOOD COUNT 4.58 M/mm3 (4.20-5.60); REDCELL DISTRIBUTION WIDTH-CV 12.9 % (11.5-14.5)
[2022-01-08 07:47] LABS: MEAN PLATELET VOLUME 9.7 fl (7.4-10.4); PLATELET COUNT 406 K/mm3 (130-400)
[2022-01-08 11:19] VITALS: BP 134/78; PULSE 94; TEMP 98.5
[2022-01-08 15:53] VITALS: BP 141/83; PULSE 93; TEMP 98.2
[2022-01-08 20:33] VITALS: BP 143/88; PULSE 99; TEMP 98.7
--- NOTE | 2022-01-08 22:33 | NUR ---
SHIFT REPORT FROM GRIS BROWNE. PATIENT IN BED ON ROOM ENTRY. ALERT AND ORIENTED. HS MEDS PER EMAR. STARTED IV POTASSIUM PER PROTOCOL, LAST BAG INFUSING NOW. DENIES NEED FOR PAIN MANAGEMENT. ABD MIDLINE CDI, FLORINA INTACT. SMALL R ABD SITE CDI, FLORINA INTACT. HYPOACTIVE BOWEL SOUNDS. PATIENT STATES HE IS STILL HAVING LOOSE STOOLS. DENIES ADDITIONAL NEEDS. CALL LIGHT IN REACH.
[2022-01-08 23:59] VITALS: BP 115/62; PULSE 94; TEMP 98.2
[2022-01-09 03:31] VITALS: BP 127/71; PULSE 84; TEMP 98.5
[2022-01-09 06:26] LABS: BASO # 0.1 K/mm3 (0.0-0.2); BASO % 0.7 % (0.0-2.0); EOS # 0.3 K/mm3 (0.0-0.7); EOS % 2.5 % (0.0-4.0); GRAN # 8.2 K/mm3 (1.4-6.5); GRAN % 67.3 % (42.2-75.2); HEMATOCRIT 37.1 % (42.0-52.0); HEMOGLOBIN 13.1 g/dl (13.5-18.0); LYMPH # 2.3 K/mm3 (1.2-3.4); LYMPH % 18.8 % (20.0-51.0); MEAN CELL VOLUME 86 fl (80.0-100.0); MEAN CORPUSCULAR HEMOGLOBIN 30 pg (27-31); MEAN CORPUSCULAR HGB CONC 35 g/dl (33.0-37.0); MEAN PLATELET VOLUME 10.1 fl (7.4-10.4); MONO # 1.2 K/mm3 (0.1-0.6); MONO % 9.8 % (1.7-9.3); PLATELET COUNT 309 K/mm3 (130-400); RED BLOOD COUNT 4.31 M/mm3 (4.20-5.60); REDCELL DISTRIBUTION WIDTH-CV 12.6 % (11.5-14.5)
[2022-01-09 07:08] LABS: CALCIUM 8.4 mg/dL (8.4-10.2); CREATININE, serum 1.76 mg/dL (0.72-1.25); MAGNESIUM 1.9 mg/dL (1.6-2.6); POTASSIUM 3.9 mmol/L (3.5-4.5)
[2022-01-09 07:52] VITALS: BP 102/58; PULSE 80; TEMP 98.2
--- NOTE | 2022-01-09 10:56 | NUR ---
PATIENT ALERT AND ORIENTED X4. VSS. PATIENT HERE FOR SBO/LYSIS OF ADHESIONS. FLORINA TO MIDLINE SITE, INTACT. RIGHT SX SITE WITH FLORINA INTACT. PICC TO RIGHT UPPER ARM WITH NS RUNNING AT 100ML/HOUR, FLUSHES WELL WITH GOOD BLOOD RETURN. PATIENT REPORTS LARGE LOOSE STOOL THIS AM. BOWEL SOUNDS ACTIVE. LUNGS CTA. PATIENT RESTING IN BED WITH CALL LIGHT NEAR.
[2022-01-09 11:13] VITALS: BP 110/65; PULSE 78; TEMP 98.1
--- NOTE | 2022-01-09 11:15 | NUR ---
SW met with the patient to follow up. The patient was lying in bed and states that he is doing alright. He confirms plan to return home upon discharge and had no concerns or questions for SW. No additional needs at this time.
[2022-01-09 16:46] VITALS: BP 145/82; PULSE 90; TEMP 98.2
[2022-01-09 18:06] LABS: CLOSTRIDIUM DIFF A/B NEG; CLOSTRIDIUM DIFF A/B INTERP NonToxigenic C.diff
[2022-01-09 20:00] VITALS: BP 118/69; PULSE 82; TEMP 97.6
--- NOTE | 2022-01-09 23:17 | NUR ---
PT A&OX4 RESTING IN BED. MEDS GIVEN AND ASSESSMENT COMPLETE. PT DENIES PN. ABD INCISIONS ARE CDI. NS AT 125 IN IVONE PICC. NO NEEDS AT THIS TIME. CALL LIGHT WITHIN REACH.
[2022-01-10] VITALS: BP 118/66; PULSE 79; TEMP 98.2
[2022-01-10 04:00] VITALS: BP 120/70; PULSE 76; TEMP 98
[2022-01-10 06:57] LABS: BASO # 0.1 K/mm3 (0.0-0.2); BASO % 0.7 % (0.0-2.0); EOS # 0.3 K/mm3 (0.0-0.7); EOS % 2.6 % (0.0-4.0); GRAN % 67.7 % (42.2-75.2); HEMOGLOBIN 11.8 g/dl (13.5-18.0); LYMPH # 2.1 K/mm3 (1.2-3.4); LYMPH % 20.2 % (20.0-51.0); MEAN CELL VOLUME 87 fl (80.0-100.0); MEAN CORPUSCULAR HEMOGLOBIN 30 pg (27-31); MEAN CORPUSCULAR HGB CONC 35 g/dl (33.0-37.0); MEAN PLATELET VOLUME 9.3 fl (7.4-10.4); MONO # 0.9 K/mm3 (0.1-0.6); MONO % 8.3 % (1.7-9.3); PLATELET COUNT 321 K/mm3 (130-400); RED BLOOD COUNT 3.89 M/mm3 (4.20-5.60); REDCELL DISTRIBUTION WIDTH-CV 12.7 % (11.5-14.5)
[2022-01-10 07:17] VITALS: BP 116/63; PULSE 79; TEMP 98
[2022-01-10 07:20] LABS: ALBUMIN 3.1 gm/dL (3.5-5.0); BILIRUBIN,TOTAL 0.4 mg/dL (0.2-1.2); CREATININE, serum 1.51 mg/dL (0.72-1.25); MAGNESIUM 1.8 mg/dL (1.6-2.6); POTASSIUM 3.4 mmol/L (3.5-4.5); TOTAL PROTEIN 6.1 gm/dL (6.2-8.1)
--- NOTE | 2022-01-10 09:39 | NUR ---
PATIENT ALERT AND ORIENTED X4. VSS. PATIENT HERE FOR SBO/LYSIS OF ADHESIONS. PATIENT DENIES PAIN AT THIS TIME. PICC TO RIGHT UPPER ARM FLUSHES WELL, GOOD BLOOD RETURN, NS RUNNING AT 125ML/HOUR. FLORINA TO MIDLINE INTACT. RIGHT ABDOMEN SITE, FLORINA INTACT. CONTACT PRECAUTIONS FOR CDIFF. PATIENT REPORTS 3 LOOSE STOOLS THIS AM. PATIENT RESTING IN BED WITH CALL LIGHT NEAR.
[2022-01-10 12:05] VITALS: BP 146/75; PULSE 83; TEMP 98
[2022-01-10 15:27] VITALS: BP 131/71; PULSE 85; TEMP 98.1
[2022-01-10 20:00] VITALS: BP 151/70; PULSE 84; TEMP 98
--- NOTE | 2022-01-10 20:45 | NUR ---
PT IN BATHROOM UPON ENTRY, REPORTS HAVING DIARRHEA STILL. PT STATES HE IS HAVING SOME CRAMPING IN HIS ABDOMEN. HE HAS BEEN ABLE TO TOLERATE MORE FOOD TODAY. CONTACT PRECAUTIONS IN PLACE. NS AT 100 IN [facility] PIC. VSS AND TELE IN PLACE. MEDS GIVEN AND ASSESSMENT COMPLETE. NO NEEDS AT THIS TIME. CALL LIGHT WITHIN REACH.
[2022-01-11 00:04] VITALS: BP 133/68; PULSE 80; TEMP 98.4
[2022-01-11 04:00] VITALS: BP 129/77; PULSE 77; TEMP 98
[2022-01-11 05:19] LABS: BASO # 0.1 K/mm3 (0.0-0.2); BASO % 0.7 % (0.0-2.0); EOS # 0.3 K/mm3 (0.0-0.7); GRAN # 5.9 K/mm3 (1.4-6.5); GRAN % 64.6 % (42.2-75.2); HEMOGLOBIN 11.4 g/dl (13.5-18.0); LYMPH # 2.1 K/mm3 (1.2-3.4); LYMPH % 22.7 % (20.0-51.0); MEAN CELL VOLUME 88 fl (80.0-100.0); MEAN CORPUSCULAR HEMOGLOBIN 30 pg (27-31); MEAN CORPUSCULAR HGB CONC 34 g/dl (33.0-37.0); MEAN PLATELET VOLUME 10.1 fl (7.4-10.4); MONO # 0.8 K/mm3 (0.1-0.6); MONO % 8.5 % (1.7-9.3); PLATELET COUNT 278 K/mm3 (130-400); RED BLOOD COUNT 3.78 M/mm3 (4.20-5.60); REDCELL DISTRIBUTION WIDTH-CV 12.8 % (11.5-14.5)
[2022-01-11 05:28] LABS: HEMATOCRIT 33.3 % (42.0-52.0)
[2022-01-11 05:35] LABS: CALCIUM 8.2 mg/dL (8.4-10.2); CREATININE, serum 1.38 mg/dL (0.72-1.25); POTASSIUM 3.4 mmol/L (3.5-4.5)
[2022-01-11 07:54] VITALS: BP 136/84; PULSE 80; TEMP 98
[2022-01-11] MEDS ORDERED: PROBIOTIC ACID1 EAC3 PO (10:25)
[2022-01-11] MEDS ORDERED: VANCOCIN H125 MG/CAP PO (10:28)
[2022-01-11] MEDS ORDERED: K-DUR20 MEQ PO (12:17)
--- NOTE | 2022-01-11 14:57 | NUR ---
DISCHARGE INSTRUCTIONS PROVIDED. PATIENT EDUCATION GIVEN. PICC LINE REMOVED, PROTOCOL FOLLOWED. FOLLOW UP APPOINTMENTS DISCUSSED. MEDICATIONS REVIEWED. PATIENT DENIES ANY QUESTIONS OR CONCERNS. PATIENT ESCORTED OUT.
== END 2022-01-11 14:50 | disposition home or self-care (01) | DRG 327 ==
LOC: SURG 10:18
PROVIDERS: Hospitalist; Physician Assistant; Surgery; ADMIT Student in an Organized Health Care Education/Training Program
PROC: 0DJ64ZZ Inspection of Stomach, Percutaneous Endoscopic Approach (ICD-10-PCS; 2021-12-29)
PROC: 0DN80ZZ Release Small Intestine, Open Approach (ICD-10-PCS; 2021-12-29)
PROC: 00HU33Z Insertion of Infusion Device into Spinal Canal, Percutaneous Approach (ICD-10-PCS; 2021-12-29 18:30)
PROC: 02HV33Z Insertion of Infusion Device into Superior Vena Cava, Percutaneous Approach (ICD-10-PCS; principal; 2022-01-03)
DX: K56.50 Intestinal adhesions [bands], unspecified as to partial versus complete obstruction (principal); A04.72 Enterocolitis due to Clostridium difficile, not specified as recurrent; N17.9 Acute kidney failure, unspecified; K56.7 Ileus, unspecified; I10 Essential (primary) hypertension; D86.9 Sarcoidosis, unspecified; E87.6 Hypokalemia; K21.9 Gastro-esophageal reflux disease without esophagitis; F41.9 Anxiety disorder, unspecified; F32.A Depression, unspecified; R11.10 Vomiting, unspecified; E78.5 Hyperlipidemia, unspecified; F43.10 Post-traumatic stress disorder, unspecified; Z79.82 Long term (current) use of aspirin; Z87.891 Personal history of nicotine dependence; Z88.5 Allergy status to narcotic agent
CPT/HCPCS: A9284; C1751; C9113; J0330; J0690; J1100; J1170; J1650; J1815; J2060; J2270; J2370; J2405; J2550; J2704; J3010; J3411; J3475; J3480; J7030; J7070; J7120; J7500; Q9967